=== PATIENT | male | born 1945 | race Caucasian/White ===

== ENCOUNTER 2017-03-03 09:15 | Outpatient (RCR) | payer OTHER | END 2017-03-07 | disposition home or self-care (01) | LOC: PTY 09:15 | DX: M21.41 Flat foot [pes planus] (acquired), right foot (principal); M13.872 Other specified arthritis, left ankle and foot ==

== ENCOUNTER → 2017-04-06 | Outpatient (RCR) | payer OTHER | END | disposition home or self-care (01) | LOC: PTY 03-10 10:55 | DX: M21.41 Flat foot [pes planus] (acquired), right foot (principal) ==

== ENCOUNTER 2017-04-20 08:54 | Outpatient (RCR) | payer OTHER | END 2017-05-07 | disposition home or self-care (01) | LOC: PTY 08:54 | DX: M21.41 Flat foot [pes planus] (acquired), right foot (principal); Q66.6 Other congenital valgus deformities of feet ==

== ENCOUNTER 2017-05-12 09:26 | Outpatient (RCR) | payer OTHER | END 2017-06-07 | disposition home or self-care (01) | LOC: PTY 09:26 | DX: M21.41 Flat foot [pes planus] (acquired), right foot (principal); Q66.6 Other congenital valgus deformities of feet; M19.90 Unspecified osteoarthritis, unspecified site; R53.1 Weakness ==